=== PATIENT | male | born 1940 | race Caucasian/White ===

== ENCOUNTER 2023-01-18 09:55 | Emergency (ER) | payer MEDICARE, SELFPAY ==
--- NOTE | ~2023-01-18 | XR_ITS ---
XR chest 2V DATE: 01/18/2023 10:30 INDICATION: Cough, shortness of breath, chest pain TECHNIQUE: PA and lateral views COMPARISON: None FINDINGS: There is elevation of the right diaphragm. There are bilateral lower lung infiltrates and/a telectasis, right greater than left. Heart size appears within normal range. Cannot exclude small right pleural effusion. No pulmonary vascular congestion or pneumothorax is dete cted. There is vertebroplasty at a prominent fracture of T12. Scoliosis and degenerative spurring of the th oracic spine. Osteopenia. IMPRESSION: Bilateral lower lung infiltrate and/atelectasis and elevated right diaphragm Reviewed, dictated and finalized at location A.
[2023-01-18 10:08] VITALS: BP 110/76; PULSE 108; RESP 20; TEMP 36.9; O2SAT 94
--- NOTE | 2023-01-18 10:16 | ECG_ITS ---
Measurements Intervals [place] Rate: 108 P: 44 FL: 189 QRS: -39 QRSD: 90 T: 57 QT: 326 QTc: 437 Interpretive Statements SINUS TACHYCARDIA VENTRICULAR PREMATURE COMPLEX LEFT AXIS DEVIATION ABNORMAL ECG NO PREVIOUS ECG AVAILABLE FOR COMPARISON Electronically Signed On 01-18-2023 16:54:00 CDT by Irineo London D.O.
--- NOTE | 2023-01-18 10:23 | ED.URI ---
HPI - URI/Sore Throat General Chief Complaint: Chest Pain Stated Complaint: Pain in chest and back;Shortness of breath Time Seen by Provider: 01/18/23 10:23 Source: patient Mode of arrival: ambulatory Limitations: no limitations History of Present Illness HPI Narrative: 82 year-old male with history of hypertension, COPD presents with complaint of cough, low-grade fever and sweats for the past 4 days. Patient has been using albuterol inhaler and doing neb treatments last night. Last neb treatment was at 4:00 a.m.. Patient complaining of pain to chest and back with taking a deep breath. Not taking any [id number] cough medications to treat his symptoms. Reports that fever yesterday was 100.4 F. short of breath with exertion. Patient lives half [place] half in [place]. Here with his family. He is speaking in full sentences, no respiratory distress. Also reports urinary frequency. No abdominal or back pain. All systems reviewed and negative except as noted above. Related Data Home Medications Medication Instructions Recorded Confirmed albuterol sulfate 2.5 mg/3 mL 2.5 mg inhalation TID 01/18/23 01/18/23 (0.083 %) solution for nebulization aspirin 81 mg tablet 81 mg PO DAILY 01/18/23 01/18/23 atorvastatin 10 mg tablet 10 mg PO DAILY 01/18/23 01/18/23 finasteride 5 mg tablet 5 mg PO DAILY 01/18/23 01/18/23 tadalafil 5 mg tablet 5 mg PO PRN PRN Sexual Activity 01/18/23 01/18/23 Allergies Allergy/AdvReac Type Severity Reaction Status Date / Time No Known Allergies Allergy Verified 01/18/23 10:30 Review of Systems Review of Systems: CONSTITUTIONAL: Reports fever, chills, and sweats. EYES: Denies visual changes, redness, or discharge. ENT: Denies rhinorrhea, congestion, sore throat, or otalgia. CARDIOVASCULAR: Denies chest pain, palpitations, or edema. RESPIRATORY: Reports cough and dyspnea with exertion GASTROINTESTINAL: Denies abdominal pain, nausea, vomiting, or diarrhea. GENITOURINARY: Denies dysuria or hematuria. Reports urinary frequency. SKIN: Denies rash or itching. MUSCULOSKELETAL: Denies back pain, joint pain, or myalgia. NEUROLOGIC: Denies headache, numbness, or weakness. PSYCHIATRIC: Denies anxiety or depression. All other systems reviewed are negative, except as documented in HPI. Exam Narrative: GENERAL: This is a well-nourished, well-developed patient. Patient ill-appearing but in no acute distress. Diaphoretic. HEAD: normocephalic, atraumatic. EYES: PERRL. Sclera clear/white. Vision is grossly intact. EARS: External ears normal, auditory canals clear and without drainage, TMs normal without perforation. Hearing grossly intact. NOSE: External nose normal with no obvious nasal discharge, nares without redness, no rhinorrhea. THROAT: Mucous membranes moist, posterior pharynx clear. NECK: Neck supple, non-tender without lymphadenopathy, masses or thyromegaly. CARDIOVASCULAR: Regular rate and rhythm without murmurs, gallops, or rubs. RESPIRATORY: Coarse, wet lung sounds throughout all lung fernández. SKIN: warm, Dry, intact with no suspicious lesions or rash, good texture and turgor. NEURO: awake, alert, and oriented to person, place and time. There were no obvious focal neurologic abnormalities. EXTREMITIES: No joint tenderness, effusion, or edema noted. Course Course Level of Care: Express Care Visit Reevaluation(s) Reevaluation #1: Lung sounds improved after DuoNeb. Oxygen saturation improved from 93% room air to 96% room air. Patient reports improved breathing but continues to have chest pain with taking deep breath. Transfer Transfered to: Other ([facility]) Transportation: Other (private car) Transfer rationale: BP 92/57. bilateral pnemonia. rule out sepsis. Accepting physician: Dr. López [facility] - URI/Sore Throat [facility] Narrative Medical decision making narrative: EKG HR 108, sinus tach, no ischemia. no old EKG for comparison. transferring to [facility]. joanna
[2023-01-18] MEDS: predniSONE 20 MG TABLET 40 MG PO (10:47)
[2023-01-18] MEDS: IPRATROPIUM BR 0.02% INH SOLN 0.5 MG/2.5 ML VIAL INHALATION (10:47)
[2023-01-18] MEDS: ALBUTEROL SULFATE NEB 2.5 MG/3 ML INH INHALATION (10:48)
[2023-01-18 11:30] VITALS: BP 92/57; PULSE 103; RESP 18; O2SAT 96
== END 2023-01-18 12:01 | disposition short-term general hospital (02) ==
PROVIDERS: Emergency Provider Nurse Practitioner Family
DX: J18.9 Pneumonia, unspecified organism (principal); I95.9 Hypotension, unspecified; Z20.822 Contact with and (suspected) exposure to COVID-19; I10 Essential (primary) hypertension; J44.9 Chronic obstructive pulmonary disease, unspecified; R94.31 Abnormal electrocardiogram [ECG] [EKG]; Z79.82 Long term (current) use of aspirin
CPT/HCPCS: 71046; 81003; 87426; 87804; 93005; 94640; 99214; C9803; G0463; J7512

== ENCOUNTER 2024-01-03 09:47 | Emergency (ER) | payer MEDICARE, SELFPAY ==
--- NOTE | ~2024-01-03 | XR_ITS ---
XR chest 2V 01/03/2024 10:15 Indication: Productive cough for one week Procedure: 2 View chest Comparison: 01/18/2023 Findings: Right middle lobe consolidation, atelectasis versus pneumonia. Elevated right diaphragm. He art size normal. Left lung clear. Impression: 1: Right middle lobe consolidation, atelectasis versus pneumonia. Reviewed, dictated and finalized at location B. Impression: 1: Right middle lobe consolidation, atelectasis versus pneumonia.
[2024-01-03 10:02] VITALS: BP 121/75; PULSE 74; RESP 16; TEMP 36.6; O2SAT 95
--- NOTE | 2024-01-03 10:06 | ED.URI ---
HPI - URI/Sore Throat General Chief Complaint: Upper Respiratory Infection Stated Complaint: Cough Source: patient Mode of arrival: ambulatory Limitations: no limitations History of Present Illness HPI Narrative: 83 y/o male presented for c/o cough and sob with exertion, and fatigue for over one week. Reports using his nebulizer 3 times a day, at baseline he uses it about 3 times a week. Cough is productive of white or canela sputum. Denies chest pain, palpitations, swelling, wheezing, decreased appetite, abdominal pain, n/v/d/f/c. 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. Related Data Home Medications Medication Instructions Recorded Confirmed albuterol sulfate 2.5 mg/3 mL 2.5 mg inhalation TID 01/18/23 01/18/23 (0.083 %) solution for nebulization aspirin 81 mg tablet 81 mg PO DAILY 01/18/23 01/18/23 atorvastatin 10 mg tablet 10 mg PO DAILY 01/18/23 01/18/23 finasteride 5 mg tablet 5 mg PO DAILY 01/18/23 01/18/23 tadalafil 5 mg tablet 5 mg PO PRN PRN Sexual Activity 01/18/23 01/18/23 [facility] 01/03/24 01/03/24 albuterol sulfate 2.5 mg/3 mL mg 01/03/24 (0.083 %) solution for nebulization amlodipine 2.5 mg tablet mg 01/03/24 atorvastatin 10 mg tablet mg 01/03/24 01/03/24 cetirizine 10 mg tablet mg 01/03/24 hydrocortisone 2.5 % topical cream applic topical 01/03/24 Allergies Allergy/AdvReac Type Severity Reaction Status Date / Time No Known Allergies Allergy Verified 01/18/23 10:30 Review of Systems Review of Systems: CONSTITUTIONAL: Denies body aches, fever, chills, or sweats. EYES: Denies visual changes, redness, or discharge. ENT: Denies rhinorrhea, congestion, sore throat, or otalgia. CARDIOVASCULAR: Denies chest pain, palpitations, or edema. RESPIRATORY: Reports cough, sob, denies wheezing. GASTROINTESTINAL: Denies abdominal pain, nausea, vomiting, or diarrhea. SKIN: Denies rash, itching, or wounds. MUSCULOSKELETAL: Denies back pain, joint pain, or myalgia. NEUROLOGIC: Denies headache, numbness, tingling, or weakness. All systems reviewed & are unremarkable except as noted in HPI and below PMFSH Past Medical History Medical History BPH without urinary obstruction HTN (hypertension) Reactive airway disease Comments At time of signature, I have reviewed and agree with nursing past medical, surgical, social and family history unless otherwise noted. Please see nursing chart for further information. There is no relevant family history pertinent to the presenting complaint Exam Narrative: GENERAL: mildly ill-appearing, in no acute distress. EYES: EOMI. No redness or drainage. Conjunctivae normal. ENT: Mucous membranes pink and moist. No rhinorrhea. CHEST: No respiratory distress. Diminished Right mid and lower lung. Occasional cough. Speaks full sentences. HEART: Regular rate and rhythm. No murmur appreciated. ABDOMEN: Soft, nontender, nondistended, normal active bowel sounds. EXTREMITIES: Normal range of motion. 1+ BLE edema. SKIN: Warm, dry, Left medial ankle with approx 3cm area of erythema and scant drainage at center. Capillary refill normal. Normal skin turgor. NEURO: Alert and oriented x3. Gait steady.PSYCH: Normal affect. Course Course Emergency Course: Patient is aware of diagnosis, understands and agrees to treatment plan. Anticipatory guidance given. Patient agrees to follow-up as directed and is aware of reasons to seek care at the emergency department. Portions of this record may have been created with voice recognition software Level of Care: Express Care Visit Vital Signs Vital signs: Vital Signs Temperature 98 F 01/03/24 10:02 Pulse Rate 74 01/03/24 10:02 Respiratory Rate 16 01/03/24 10:02 Blood Pressure 121/75 01/03/24 10:02 Pulse Oximetry 95 01/03/24 10:02 Temperature 98 F 01/03/24 10:02 Pulse Rate 74 01/03/24 10:02 Respiratory Rate 16 01/03/24 10:02
== END 2024-01-03 10:55 | disposition short-term general hospital (02) ==
PROVIDERS: Emergency Provider Nurse Practitioner Family
DX: R06.02 Shortness of breath (principal); Z20.822 Contact with and (suspected) exposure to COVID-19; N40.0 Benign prostatic hyperplasia without lower urinary tract symptoms; I10 Essential (primary) hypertension; J45.909 Unspecified asthma, uncomplicated; Z79.02 Long term (current) use of antithrombotics/antiplatelets
CPT/HCPCS: 71046; 87426; 99213; G0463